=== PATIENT | male | born 1985 | race Caucasian/White ===

== ENCOUNTER 2018-02-22 11:16 | Emergency (ER) | payer OTHER, MEDICAID ==
--- NOTE | 2018-02-22 11:35 | EDPHY ---
H & P Time Seen by Provider: 02/22/18 11:27 HPI/ROS: CHIEF COMPLAINT: Confusion HISTORY OF PRESENT ILLNESS: 32-year-old male presents after being found down. EMS was called because of a man being found down. On their arrival, he was confused. He was walking all night long and tells me he is simply tired. He declines to answer whether he has been drinking alcohol or using drugs. No injury and no recent illness. REVIEW OF SYSTEMS: Unable to determine - Medical/Surgical History Hx Asthma: No Hx Chronic Respiratory Disease: No Hx Diabetes: No Hx Cardiac Disease: No Hx Renal Disease: No Hx Cirrhosis: No Hx Alcoholism: No Hx HIV/AIDS: No Hx Splenectomy or Spleen Trauma: No Other PMH: PSYCH. SCHIZOPRENIA - Social History Smoking Status: Light smoker - Physical Exam Exam: General Appearance: Drowsy, answers most questions appropriately Eyes: Pupils equal and round, no conjunctival pallor or injection ENT, Mouth: Mucous membranes moist Neck: Normal inspection Respiratory: Lungs are clear to auscultation Cardiovascular: Regular rate and rhythm Gastrointestinal: Abdomen is soft and nontender Neurological: Alert, oriented to person and place, nonfocal exam Skin: Warm and dry Extremities: Normal inspection Psychiatric: Flat affect Constitutional: Initial Vital Signs Temperature (C) 36.5 C 02/22/18 11:25 Heart Rate 57 L 02/22/18 11:25 Respiratory Rate 16 02/22/18 11:25 Blood Pressure 96/52 L 02/22/18 11:25 O2 Sat (%) 96 02/22/18 11:25 O2 Delivery Mode Room Air Allergies/Adverse Reactions: ciprofloxacin [From Cipro] Allergy (Verified 02/22/18 11:40) ciprofloxacin HCl [From Cipro] Allergy (Verified 02/22/18 11:40) Home Medications: Medication Instructions Recorded DULoxetine [Cymbalta] 06/24/14 [place] Carbonate 06/24/14 Medical Decision Making ED Course/Re-evaluation: This pt presents with AMS, likely secondary to substance abuse. Will obs. 2pm: mental status improved. Etoh negative, likely other substance ingestion. No evidence acute psychosis. Able to walk with a steady gait. Will discharge home. Differential Diagnosis: Altered mental status including but not limited to hypoglycemia, infectious process, electrolyte abnormality, head injury, CVA, and intoxicants. - Data Points Laboratory Results: Laboratory Results 02/22/18 11:25 06/15/18 11:25 02/22/18 02/22/18 11:25 11:25 WBC 8.54 10^3/uL 10^3/uL (3.80-9.50) RBC 5.02 10^6/uL 10^6/uL (4.40-6.38) Hgb 15.6 g/dL g/dL (13.7-17.5) Hct 44.6 % % (40.0-51.0) MCV 88.8 fL fL (81.5-99.8) MCH 31.1 pg pg (27.9-34.1) MCHC 35.0 g/dL g/dL (32.4-36.7) RDW 12.8 % % (11.5-15.2) Plt Count 226 10^3/uL 10^3/uL (150-400) MPV 11.7 fL fL (8.7-11.7) Neut % (Auto) 55.8 % % (39.3-74.2) Lymph % (Auto) 28.3 % % (15.0-45.0) [place] % (Auto) 8.4 % % (4.5-13.0) Eos % (Auto) 6.0 % % (0.6-7.6) Baso % (Auto) 1.1 % % (0.3-1.7) Nucleat RBC Rel Count 0.0 % % (0.0-0.2) Absolute Neuts (auto) 4.77 10^3/uL 10^3/uL (1.70-6.50) Absolute Lymphs (auto) 2.42 10^3/uL 10^3/uL (1.00-3.00) Absolute Monos (auto) 0.72 10^3/uL 10^3/uL (0.30-0.80) Absolute Eos (auto) 0.51 10^3/uL H 10^3/uL (0.03-0.40) Absolute Basos (auto) 0.09 10^3/uL 10^3/uL (0.02-0.10) Absolute Nucleated RBC 0.00 10^3/uL 10^3/uL (0-0.01) Immature Gran % 0.4 % % (0.0-1.1) Immature Gran # 0.03 10^3/uL 10^3/uL (0.00-0.10) Sodium 144 mEq/L mEq/L (135-145) Potassium 4.3 mEq/L mEq/L (3.3-5.0) Chloride 106 mEq/L mEq/L (97-110) Carbon Dioxide 25 mEq/l mEq/l (22-31) Anion Gap 13 mEq/L mEq/L (8-16) BUN 26 mg/dL H mg/dL (7-23) Creatinine 0.9 mg/dL mg/dL (0.7-1.3) Estimated GFR > 60 Glucose 80 mg/dL mg/dL (70-100) Calcium 9.3 mg/dL mg/dL (8.5-10.4) Ethyl Alcohol < 10 mg/dL mg/dL (0-10) Medications Given: Discontinued Medications Sodium Chloride (Ns) 1,000 mls @ 0 mls/hr IV ONCE ONE; Wide Open PRN Reason: Protocol Stop: 02/22/18 12:06 Last Admin: 02/22/18 12:24 Dose: 1,000 mls Departure - Departure Disposition: Home, Routine, Self-Care Clinical Impression: Paranoid schizophrenia, Substance abuse Condition: Fair Instructions: Polysubstance Abuse (ED) Referrals: Willis Thompson DO [Doctor of Osteopathy] - As per Instructions
[2018-02-22 11:52] LABS: PLATELET COUNT 226 10^3/uL (150-400)
[2018-02-22] MEDS ORDERED: NS 1,000 ML IV ONE (12:05)
[2018-02-22 14:04] VITALS: BP 104/58
== END 2018-02-22 14:08 | disposition home or self-care (01) ==
LOC: EDUNIT#
DX: F19.10 Other psychoactive substance abuse, uncomplicated (principal); F20.0 Paranoid schizophrenia; E86.9 Volume depletion, unspecified; F17.200 Nicotine dependence, unspecified, uncomplicated
CPT/HCPCS: G0480